=== PATIENT | male | born 1935 | race Two or more races ===

== ENCOUNTER 2018-09-15 04:43 | Inpatient (IN) | payer BC, OTHER | END 2018-09-17 15:01 | disposition home or self-care (01) | LOC: ER 04:43 → OVERFLOW 08:25 → WEST WING 20:25 | DX: K56.609 Unspecified intestinal obstruction, unspecified as to partial versus complete obstruction (principal); I10 Essential (primary) hypertension; E78.5 Hyperlipidemia, unspecified; K27.9 Peptic ulcer, site unspecified, unspecified as acute or chronic, without hemorrhage or perforation; C61 Malignant neoplasm of prostate; E78.00 Pure hypercholesterolemia, unspecified; D64.9 Anemia, unspecified ==

== ENCOUNTER → 2019-09-10 | Emergency (ER) | payer BC ==
[~2019-09-10] VITALS: Ht 165.1 cm; Wt 62.6 kg
[~2019-09-10] MED LIST: AML5T PO; ATEN-60 PO; CHOL20007 PO; FOLI1TAB6 PO; FURO1TAB33 PO; METH2.5T3 PO; POTA-220 PO; TROS20TA3 PO
[2019-09-10 07:09] LABS: Basophils # (auto) 0.1 10 ^3/uL (0-0.2); Basophils % (auto) 1.1 % (0.0-2.0); Eosinophils # (auto) 0.5 10 ^3/uL (0-0.8); Eosinophils % (auto) 8.6 % (0.0-7.0); Hematocrit 37.5 % (41.0-53.0); Hemoglobin 12.2 g/dL (13.5-17.5); Lymphocytes # (auto) 0.8 10 ^3/uL (0.4-5.4); Lymphocytes % (auto) 14.1 % (10.0-50.0); Mean Corpuscular Hemoglobin 29.8 pg (28.0-32.0); Mean Corpuscular Hgb Conc. 32.5 g/dL (32.0-36.0); Mean Corpuscular Volume 91.5 fL (80.0-100.0); Monocytes # (auto) 0.5 10 ^3/uL (0-1.3); Monocytes % (auto) 8.5 % (0.0-12.0); Neutrophils # (auto) 3.8 10 ^3/uL (1.6-8.6); Neutrophils % (auto) 67.7 % (37.0-80.0); Platelet Count (auto) 111 10^3/uL (140-450); Red Cell Distribution Width 15.4 % (11.8-14.3); White Blood Cell 5.7 10^3/uL (4.4-10.8)
[2019-09-10 07:29] LABS: Calcium 9.1 mg/dL (8.5-10.1); Chloride 109 mmol/L (98-107); Potassium 4.1 mmol/L (3.5-5.1); Sodium 140 mmol/L (136-145)
[2019-09-10 07:37] LABS: Alanine Aminotransferase 20 U/L (16-61); Albumin 3.6 g/dL (3.4-5.0); Alkaline Phosphatase 89 U/L (45-117); Anion Gap 4 (5-15); Aspartate Aminotransferase 18 U/L (15-37); BUN/Creatinine Ratio 14.3; Bilirubin, Total 0.4 mg/dL (0.2-1.0); Blood Urea Nitrogen 14 mg/dL (7-18); Carbon Dioxide 27 mmol/L (21-32); GFR African American 94 mL/min; GFR Non-African American 77 mL/min; Glucose 92 mg/dL (74-106); Total Protein 7.2 g/dL (6.4-8.2)
[2019-09-10 09:15] VITALS: BP 123/55
== END | disposition home or self-care (01) ==
LOC: ER 05:06
DX: J20.9 Acute bronchitis, unspecified (principal); I10 Essential (primary) hypertension; M19.90 Unspecified osteoarthritis, unspecified site
CPT/HCPCS: 36415; 71045; 80053; 83880; 84484; 85025; 93005

== ENCOUNTER → 2019-09-23 | Emergency (ER) | payer BC ==
[~2019-09-23] VITALS: Ht 165.1 cm; Wt 62.6 kg
[~2019-09-23] MED LIST changes: +cefTRIAXone 1GM/50ML D5W 50 ML IV ONE; +cefTRIAXone W LIDOCAINE 1 GM IM IM ONE
[2019-09-23 11:01] LABS: Basophils # (auto) 0.1 10 ^3/uL (0-0.2); Basophils % (auto) 1.3 % (0.0-2.0); Eosinophils # (auto) 0.5 10 ^3/uL (0-0.8); Eosinophils % (auto) 7.8 % (0.0-7.0); Hematocrit 38.4 % (41.0-53.0); Hemoglobin 12.8 g/dL (13.5-17.5); Lymphocytes # (auto) 1.3 10 ^3/uL (0.4-5.4); Lymphocytes % (auto) 18.5 % (10.0-50.0); Mean Corpuscular Hemoglobin 30.2 pg (28.0-32.0); Mean Corpuscular Hgb Conc. 33.4 g/dL (32.0-36.0); Mean Corpuscular Volume 90.5 fL (80.0-100.0); Monocytes # (auto) 0.7 10 ^3/uL (0-1.3); Monocytes % (auto) 10.8 % (0.0-12.0); Neutrophils # (auto) 4.3 10 ^3/uL (1.6-8.6); Neutrophils % (auto) 61.6 % (37.0-80.0); Nucleated Red Blood Cells % 0.3 %; Platelet Count (auto) 200 10^3/uL (140-450); Red Blood Cells 4.24 10^6/uL (4.5-5.90); Red Cell Distribution Width 15.4 % (11.8-14.3); White Blood Cell 6.9 10^3/uL (4.4-10.8)
[2019-09-23 11:04] LABS: Urine Bacteria MANY /hpf (None Seen); Urine Blood 2+ /uL (Negative); Urine Mucus FEW (None Seen); Urine Specific Gravity 1.017 (1.001-1.035); Urine WBC 729 /hpf (0 - 3); Urine WBC Clumps PRESENT /hpf (None Seen)
[2019-09-23 11:23] LABS: Albumin 3.6 g/dL (3.4-5.0); Anion Gap 6 (5-15); Blood Urea Nitrogen 14 mg/dL (7-18); Calcium 9.1 mg/dL (8.5-10.1); Carbon Dioxide 25 mmol/L (21-32); Chloride 111 mmol/L (98-107); Glucose 105 mg/dL (74-106); Potassium 3.4 mmol/L (3.5-5.1); Sodium 142 mmol/L (136-145)
[2019-09-23 11:29] LABS: Alanine Aminotransferase 22 U/L (16-61); Alkaline Phosphatase 105 U/L (45-117); Aspartate Aminotransferase 23 U/L (15-37); Bilirubin, Total 0.4 mg/dL (0.2-1.0); GFR African American 84 mL/min; GFR Non-African American 69 mL/min; Total Protein 7.5 g/dL (6.4-8.2)
[2019-09-23 13:31] VITALS: BP 110/50
== END | disposition home or self-care (01) ==
LOC: ER 10:26
DX: N39.0 Urinary tract infection, site not specified (principal); N41.0 Acute prostatitis; I10 Essential (primary) hypertension; Z79.899 Other long term (current) drug therapy; Z91.041 Radiographic dye allergy status
CPT/HCPCS: 36415; 80053; 81001; 84484; 85025; 96372; 99283; J0696

== ENCOUNTER 2019-11-15 22:37 | Inpatient (IN) | payer BC, MEDICARE ==
[~2019-11-15] VITALS: Ht 167.6 cm; Wt 61.9 kg
[~2019-11-15 22:37] MED LIST changes: -cefTRIAXone 1GM/50ML D5W 50 ML IV ONE; -cefTRIAXone W LIDOCAINE 1 GM IM IM ONE
[2019-11-16] MEDS ORDERED: ONDANSETRON HCL 4 MG/2 ML VIAL IV ONE
[2019-11-16] MEDS ORDERED: MORPHINE SULFATE 4 MG/ML SYR/VIAL IV ONE
[2019-11-16 00:02] LABS: Basophils # (auto) 0 10 ^3/uL (0-0.2); Basophils % (auto) 0.4 % (0.0-2.0); Eosinophils # (auto) 0.1 10 ^3/uL (0-0.8); Eosinophils % (auto) 1.3 % (0.0-7.0); Hematocrit 35.5 % (41.0-53.0); Hemoglobin 11.6 g/dL (13.5-17.5); Lymphocytes # (auto) 0.9 10 ^3/uL (0.4-5.4); Lymphocytes % (auto) 11.7 % (10.0-50.0); Mean Corpuscular Hemoglobin 29.5 pg (28.0-32.0); Mean Corpuscular Hgb Conc. 32.7 g/dL (32.0-36.0); Mean Corpuscular Volume 90.3 fL (80.0-100.0); Monocytes # (auto) 0.2 10 ^3/uL (0-1.3); Monocytes % (auto) 2.8 % (0.0-12.0); Neutrophils # (auto) 6.3 10 ^3/uL (1.6-8.6); Neutrophils % (auto) 83.8 % (37.0-80.0); Nucleated Red Blood Cells % 0.1 %; Platelet Count (auto) 108 10^3/uL (140-450); Red Blood Cells 3.94 10^6/uL (4.5-5.90); White Blood Cell 7.5 10^3/uL (4.4-10.8)
[2019-11-16 00:19] LABS: Albumin 3.9 g/dL (3.4-5.0); BUN/Creatinine Ratio 16.9; Calcium 9.2 mg/dL (8.5-10.1); Potassium 4.1 mmol/L (3.5-5.1)
[2019-11-16 00:32] LABS: Bilirubin, Total 0.4 mg/dL (0.2-1.0); Total Protein 7.5 g/dL (6.4-8.2)
[2019-11-16] MEDS ORDERED: SODIUM CHLORIDE 0.9% 1,000 ML IV ONE (01:00)
[2019-11-16] MEDS ORDERED: ONDANSETRON HCL 4 MG/2 ML VIAL IV PRN ×3 (01:00→15:30)
[2019-11-16] MEDS ORDERED: MORPHINE SULF INJ 2 MG/ML SYRINGE 1ML IV PRN (01:00)
[2019-11-16 02:11] LABS: Urine Bacteria FEW /hpf (None Seen); Urine Blood 3+ /uL (Negative); Urine Hyaline Cast FEW /lpf (0 - 2); Urine Mucus FEW (None Seen); Urine Specific Gravity 1.012 (1.001-1.035); Urine WBC 8 /hpf (0 - 3)
[2019-11-16] MEDS ORDERED: cefTRIAXone 1GM/50ML D5W 50 ML IV ONE (02:30)
[2019-11-16] MEDS ORDERED: HYDROcodone-ACET 5/325MG TAB PO PRN (02:45)
[2019-11-16] MEDS ORDERED: ACETAMINOPHEN 325 MG TAB PO PRN (02:45)
[2019-11-16] MEDS ORDERED: TEMAZEPAM 15 MG CAP PO PRN (02:45)
--- NOTE | 2019-11-16 04:15 | NUR ---
MS admit from [facility] admitted to tele/MS after SBAR received. Patient oriented to Kristan Dobbins RN primary RN, unit, room, bed, and unit policies regarding patient care and visiting hours. Patient weighed by bedscale and encouraged to call if they need something. All questions and concerns addressed, patient verbalized understanding. Safety precaution in place, call light within reach, bed alarm on, will continue to monitor Note:
[2019-11-16 05:00] VITALS: BP 140/56
[2019-11-16 05:12] VITALS: BP 140/56
[2019-11-16] MEDS: FUROSEMIDE 20 MG TAB PO SCH ×2 (06:22→18:07)
--- NOTE | 2019-11-16 07:15 | NUR ---
OPENING SHIFT NOTE Assumed care of patient from overnight stocker RN. Patient is asleep in bed, no signs of distress noted, chest rise and fall is symmetrical and breathing is unlabored. Walker is noted at bedside. Bed is locked, in the lowest position, side rails up x2 and call light is in reach.
[2019-11-16 08:23] VITALS: BP 132/61
[2019-11-16] MEDS: POTASSIUM CHL 20 Meq TABLET PO SCH (09:53)
[2019-11-16] MEDS: ATENOLOL 50 MG TAB PO SCH (09:53)
[2019-11-16] MEDS: amLODIPine BESYLATE 5 MG TAB PO SCH (09:54)
[2019-11-16] MEDS: FAMOTIDINE 20 MG TAB PO SCH ×2 (09:54→23:12)
[2019-11-16 11:25] LABS: INR 1.04 (0.9-1.15); Partial Thromboplastin Time 24.9 sec (23.64-32.05)
--- NOTE | 2019-11-16 12:20 | NUR ---
JEANINE AT BEDSIDE updated on patient status. Plan of care was discussed with patient and he verbalized understanding. No new orders received.
[2019-11-16 12:27] VITALS: BP 139/62
--- NOTE | 2019-11-16 13:50 | NUR ---
PATIENT TAKEN TO OR No signs of distress noted. Care endorsed to pre-op nurse brett.
[2019-11-16] MEDS ORDERED: MIDAZOLAM HCL 1MG/1ML-2 ML VIAL ONE (14:31)
[2019-11-16] MEDS ORDERED: fentaNYL CITRATE 100 MCG/2 ML VL ONE (14:31)
[2019-11-16] MEDS ORDERED: PROPOFOL 10 MG/ML 20 ML IV ONE (14:31)
[2019-11-16] MEDS ORDERED: ONDANSETRON HCL 4 MG/2 ML VIAL ONE (14:31)
[2019-11-16] MEDS ORDERED: MORPHINE SULFATE 4 MG/ML SYR/VIAL IV PRN (15:30)
[2019-11-16] MEDS ORDERED: HYDROmorphone HCL 2 MG/ML VL IV PRN (15:30)
[2019-11-16] MEDS ORDERED: IOHEXOL 300 MG/ML 100ML BOTTLE IJ ONE (16:08)
--- NOTE | 2019-11-16 17:32 | NUR ---
PATIENT NOT IN HIS ROOM.
[2019-11-16 22:00] VITALS: BP 112/46
[2019-11-17 05:00] VITALS: BP 132/60
[2019-11-17] MEDS: FUROSEMIDE 20 MG TAB PO SCH (06:09)
--- NOTE | 2019-11-17 06:10 | NUR ---
JUAN'dhiraj Guaman per MD order Patient tolerated well. Patient has been ambulating in hallway and room, tolerating well. No complaints of pain or discomfort. Patient has no s/s of distress or SOB. Will continue to monitor patient Q1 and PRN.
--- NOTE | 2019-11-17 07:12 | NUR ---
End of Shift Note Endorsed care to dayshift RN. No s/s of distress or SOB. Patient responsive to name and touch.
[2019-11-17 07:27] LABS: Basophils # (auto) 0 10 ^3/uL (0-0.2); Basophils % (auto) 0.2 % (0.0-2.0); Eosinophils # (auto) 0.1 10 ^3/uL (0-0.8); Eosinophils % (auto) 2.3 % (0.0-7.0); Hematocrit 36.3 % (41.0-53.0); Hemoglobin 11.9 g/dL (13.5-17.5); Lymphocytes # (auto) 0.8 10 ^3/uL (0.4-5.4); Lymphocytes % (auto) 13.6 % (10.0-50.0); Mean Corpuscular Hemoglobin 29.5 pg (28.0-32.0); Mean Corpuscular Hgb Conc. 32.7 g/dL (32.0-36.0); Mean Corpuscular Volume 90.1 fL (80.0-100.0); Monocytes # (auto) 0.2 10 ^3/uL (0-1.3); Monocytes % (auto) 2.7 % (0.0-12.0); Neutrophils # (auto) 4.6 10 ^3/uL (1.6-8.6); Neutrophils % (auto) 81.2 % (37.0-80.0); Nucleated Red Blood Cells % 0.1 %; Platelet Count (auto) 125 10^3/uL (140-450); Red Blood Cells 4.02 10^6/uL (4.5-5.90); Red Cell Distribution Width 14.7 % (11.8-14.3); White Blood Cell 5.7 10^3/uL (4.4-10.8)
[2019-11-17 07:43] LABS: Calcium 9.3 mg/dL (8.5-10.1); Potassium 3.9 mmol/L (3.5-5.1)
[2019-11-17 07:46] LABS: BUN/Creatinine Ratio 13.4
[2019-11-17 08:00] VITALS: BP 118/50
--- NOTE | 2019-11-17 08:45 | NUR ---
Received report from dayshift JOVITA Shepard, Assumed care of patient, awake and alert. Respirations are even and unlabored. No S/S of distress/SOB or pain. Bed is low, locked with 2x side rails up. Call light is within reach. Instructed on POC and to call for assist PRN, will continue to monitor for changes Q1hr and PRN.
[2019-11-17 09:00] VITALS: BP 118/50
[2019-11-17] MEDS ORDERED: cefTRIAXone 1GM/50ML D5W 50 ML IV SCH (09:00)
[2019-11-17] MEDS: FAMOTIDINE 20 MG TAB PO SCH (09:36)
[2019-11-17] MEDS: amLODIPine BESYLATE 5 MG TAB PO SCH (09:37)
[2019-11-17] MEDS: POTASSIUM CHL 20 Meq TABLET PO SCH (09:37)
[2019-11-17] MEDS: ATENOLOL 50 MG TAB PO SCH (09:37)
[2019-11-17 11:23] VITALS: BP 118/50
--- NOTE | 2019-11-17 13:48 | NUR ---
Discharge instructions given as ordered. Encourage to follow up with PMD as instructed. All questions and concerns addressed. Patient verbalized understanding. Emphasized the importance of patient following up with Dr. Boyer (Urology) in 2 weeks. Appointment information provided to patient. IV removed with catheter intact, pressure dressing applied. Patient ambulated using personal walker with personal belongings, accompanied by staff. Patient stated he would like to wait for his downstairs. Patient waiting in lobby at this time. No distress noted.
== END 2019-11-17 13:42 | disposition home or self-care (01) | DRG 661 ==
LOC: ER 22:39 → WEST WING 22:40
PROVIDERS: ADMIT Nurse Practitioner; ATTEND Family Medicine
PROC: BT1F1ZZ Fluoroscopy of Left Kidney, Ureter and Bladder using Low Osmolar Contrast (ICD-10-PCS; 2019-11-16)
PROC: 0T778DZ Dilation of Left Ureter with Intraluminal Device, Via Natural or Artificial Opening Endoscopic (ICD-10-PCS; principal; 2019-11-16 15:54)
PROC: 0TF78ZZ Fragmentation in Left Ureter, Via Natural or Artificial Opening Endoscopic (ICD-10-PCS; 2019-11-16 15:54)
DX: N13.6 Pyonephrosis (principal); I10 Essential (primary) hypertension; K44.9 Diaphragmatic hernia without obstruction or gangrene; K57.30 Diverticulosis of large intestine without perforation or abscess without bleeding; I70.0 Atherosclerosis of aorta; Z87.442 Personal history of urinary calculi; Z79.899 Other long term (current) drug therapy; Z82.49 Family history of ischemic heart disease and other diseases of the circulatory system; Z80.6 Family history of leukemia; Z80.9 Family history of malignant neoplasm, unspecified; Z91.041 Radiographic dye allergy status
CPT/HCPCS: 36415; 71045; 74018; 74176; 80048; 80053; 81001; 83690; 85025; 85610; 85730; 86850; 86900; 86901; 96361; 96365; 96375; 96376; G0378; J0696; J2250; J2405; J2704

== ENCOUNTER → 2020-01-18 | Emergency (ER) | payer MEDICARE ==
[~2020-01-18] VITALS: Ht 167.6 cm; Wt 60.8 kg
[~2020-01-18] MED LIST changes: +KETOROLAC TROMETH 30 MG/ML 1ML VIAL IV ONE; +METH2.5T PO; -METH2.5T3 PO; +ONDANSETRON HCL 4 MG/2 ML VIAL IV ONE; +SODIUM CHLORIDE 0.9% 1,000 ML IV ONE; +cefTRIAXone 1GM/50ML D5W 50 ML IV ONE; +cloNIDine HCL 0.1 MG TAB PO ONE
[2020-01-18 08:19] LABS: Basophils # (auto) 0 10 ^3/uL (0-0.2); Basophils % (auto) 0.1 % (0.0-2.0); Eosinophils # (auto) 0 10 ^3/uL (0-0.8); Hematocrit 35.8 % (41.0-53.0); Hemoglobin 11.6 g/dL (13.5-17.5); Lymphocytes # (auto) 0.4 10 ^3/uL (0.4-5.4); Lymphocytes % (auto) 3.5 % (10.0-50.0); Mean Corpuscular Hemoglobin 29.8 pg (28.0-32.0); Mean Corpuscular Hgb Conc. 32.3 g/dL (32.0-36.0); Mean Corpuscular Volume 92.3 fL (80.0-100.0); Monocytes # (auto) 0.2 10 ^3/uL (0-1.3); Monocytes % (auto) 1.6 % (0.0-12.0); Neutrophils # (auto) 10.5 10 ^3/uL (1.6-8.6); Neutrophils % (auto) 94.8 % (37.0-80.0); Nucleated Red Blood Cells % 0.1 %; Platelet Count (auto) 172 10^3/uL (140-450); Red Blood Cells 3.88 10^6/uL (4.5-5.90); Red Cell Distribution Width 15.6 % (11.8-14.3); White Blood Cell 11.1 10^3/uL (4.4-10.8)
[2020-01-18 08:45] LABS: Albumin 3.9 g/dL (3.4-5.0); Anion Gap 7 (5-15); Blood Urea Nitrogen 24 mg/dL (7-18); Calcium 9.3 mg/dL (8.5-10.1); Carbon Dioxide 26 mmol/L (21-32); Chloride 105 mmol/L (98-107); Glucose 198 mg/dL (74-106); Potassium 3.8 mmol/L (3.5-5.1); Sodium 138 mmol/L (136-145)
[2020-01-18 08:52] LABS: Alanine Aminotransferase 20 U/L (16-61); Alkaline Phosphatase 89 U/L (45-117); Aspartate Aminotransferase 20 U/L (15-37); BUN/Creatinine Ratio 15.2; Bilirubin, Total 0.7 mg/dL (0.2-1.0); GFR African American 54 mL/min; GFR Non-African American 45 mL/min; Total Protein 7.9 g/dL (6.4-8.2)
[2020-01-18 09:28] LABS: Urine Bacteria FEW /hpf (None Seen); Urine Blood 2+ /uL (Negative); Urine Specific Gravity 1.011 (1.001-1.035); Urine WBC 91 /hpf (0 - 3)
[2020-01-18 12:24] VITALS: BP 136/60
== END | disposition home or self-care (01) ==
LOC: ER 06:41
DX: N20.0 Calculus of kidney (principal); E86.0 Dehydration; I10 Essential (primary) hypertension; N39.0 Urinary tract infection, site not specified
CPT/HCPCS: 36415; 71045; 74176; 80053; 81001; 84484; 85025; 96361; 96365; 96375; 99285; J0696; J1885; J2405; J7030

== ENCOUNTER 2020-07-23 09:49 | Emergency (ER) | payer MEDICARE, OTHER ==
[~2020-07-23] VITALS: Ht 167.6 cm; Wt 59.0 kg
[~2020-07-23 09:49] MED LIST changes: -KETOROLAC TROMETH 30 MG/ML 1ML VIAL IV ONE; -ONDANSETRON HCL 4 MG/2 ML VIAL IV ONE; -SODIUM CHLORIDE 0.9% 1,000 ML IV ONE; -cefTRIAXone 1GM/50ML D5W 50 ML IV ONE; -cloNIDine HCL 0.1 MG TAB PO ONE
[2020-07-23 10:30] LABS: Basophils # (auto) 0 10 ^3/uL (0-0.2); Eosinophils # (auto) 0.3 10 ^3/uL (0-0.8); Hemoglobin 8.6 g/dL (13.5-17.5); Mean Corpuscular Hemoglobin 32.1 pg (28.0-32.0); Monocytes # (auto) 0.3 10 ^3/uL (0-1.3)
[2020-07-23 10:33] LABS: Basophils % (auto) 0.5 % (0.0-2.0); Eosinophils % (auto) 8.6 % (0.0-7.0); Hematocrit 25.6 % (41.0-53.0); Lymphocytes # (auto) 0.8 10 ^3/uL (0.4-5.4); Lymphocytes % (auto) 24.1 % (10.0-50.0); Mean Corpuscular Hgb Conc. 33.6 g/dL (32.0-36.0); Mean Corpuscular Volume 95.6 fL (80.0-100.0); Monocytes % (auto) 8.3 % (0.0-12.0); Neutrophils % (auto) 58.5 % (37.0-80.0); Nucleated Red Blood Cells % 0.6 %; Platelet Count (auto) 68 10^3/uL (140-450); Red Blood Cells 2.68 10^6/uL (4.5-5.90); White Blood Cell 3.5 10^3/uL (4.4-10.8)
[2020-07-23 10:47] LABS: Albumin 3.3 g/dL (3.4-5.0); Anion Gap 5 (5-15); Blood Urea Nitrogen 13 mg/dL (7-18); Calcium 8.2 mg/dL (8.5-10.1); Carbon Dioxide 25 mmol/L (21-32); Chloride 112 mmol/L (98-107); Glucose 116 mg/dL (74-106); Potassium 3.4 mmol/L (3.5-5.1); Sodium 142 mmol/L (136-145)
[2020-07-23 10:54] LABS: Alanine Aminotransferase 17 U/L (16-61); Alkaline Phosphatase 82 U/L (45-117); Aspartate Aminotransferase 15 U/L (15-37); BUN/Creatinine Ratio 11.8; Bilirubin, Total 0.4 mg/dL (0.2-1.0); GFR African American 82 mL/min; GFR Non-African American 68 mL/min
[2020-07-23 17:07] VITALS: BP 127/44
== END 2020-07-23 17:57 | disposition home or self-care (01) ==
LOC: ER 09:49
DX: N20.0 Calculus of kidney (principal); M48.061 Spinal stenosis, lumbar region without neurogenic claudication; E46 Unspecified protein-calorie malnutrition; I10 Essential (primary) hypertension; Z79.899 Other long term (current) drug therapy
CPT/HCPCS: 36415; 71045; 72131; 72170; 80053; 84484; 85025